=== PATIENT | female | born 1990 | race Caucasian/White ===

== ENCOUNTER 2018-01-11 19:32 | Emergency (ER) | payer BC, OTHER ==
[~2018-01-11] VITALS: Ht 160 cm; Wt 102.5 kg
[~2018-01-11 19:32] MED LIST: BCPILLS PO; MULT-240 PO; PRT/20 PO
[2018-01-11 19:56] VITALS: TEMP 37.1; Ht 160 cm; Wt 102.5 kg
--- NOTE | 2018-01-11 20:22 | EMERGENCY ROOM VISIT NOTE ---
History Report prepared by Donna: Marilee Mixon Under the Supervision of: Dr. Bennie Kennedy M.D. First contact with patient: 20:03 Chief Complaint: ABDOMINAL PAIN Stated Complaint: ABD PAIN History of Present Illness The patient is a 27 year old female who presents to the Emergency Room with complaints of constant abdominal pain beginning last night around 10 pm, about 22 hours ago. The patient reports her pain started as generalized abdominal pain. Since her pain started, it has moved to her right lower quadrant. She denies any radiation or further movement of her pain. She was seen at [facility] this afternoon and referred to the ED for an appendicitis rule out. At its worst, the patient rates her pain as a 6/10. She notes her pain is worse when she is up and moving. She denies any nausea, diarrhea, vomiting, or vaginal bleeding. The patient has a history of acid reflux. Source of History: patient Onset: 10 pm last night Position: abdomen Symptom Intensity: 6/10 Quality: other (pain) Timing: constant Associated Symptoms: + abdominal pain, No nausea, No vomiting, No diarrhea, No urinary symptoms Review of Systems See HPI for pertinent positives & negatives. A total of 10 systems reviewed and were otherwise negative. Past Medical & Surgical Medical Problems: (1) Acid reflux Family History Patient reports no known family medical history. Social History Smoking Status: Never Smoker Marital Status: single, in relationship Occupation Status: student Current/Historical Medications Scheduled Control Pills ( Control Pills), 1 TAB PO DAILY Gabapentin (Neurontin), 100 MG PO HS Multiple Vitamins W/ Minerals (Womens One Daily), 1 TAB PO DAILY Pantoprazole (Protonix), 40 MG PO QAM Allergies Coded Allergies: Azithromycin (Verified Allergy, Intermediate, HIVES, 01/11/18) Sulfa Drugs (Verified Allergy, Intermediate, HIVES, 01/11/18) Sulfamethoxazole w/Trimethoprim (Verified Allergy, Intermediate, HIVES, ) Physical Exam Vital Signs Date Time Temp Pulse Resp B/P (MAP) Pulse Ox O2 Delivery O2 Flow Rate FiO2 01/12/18 00:02 85 18 126/89 97 01/11/18 21:19 87 18 137/90 98 Room Air 01/11/18 19:56 37.1 91 19 154/107 98 Room Air Physical Exam GENERAL: Patient is in no acute distress. HEENT: No acute trauma, normocephalic atraumatic, mucous membranes moist, no nasal congestion, no scleral icterus. NECK: No stridor, no adenopathy, no meningismus, trachea is midline. LUNGS: Clear to auscultation bilaterally, no wheeze, no rhonchi, breath sounds equal. HEART: Without murmurs gallops or rubs, regular rate and rhythm. ABDOMEN: Moderately tender in RLQ. Soft, bowel sounds positive, no hernias, no peritonitis. EXTREMITIES: No cyanosis or edema, full range of motion of all the joints without pain or difficulty, no signs for acute trauma. NEUROLOGIC: Oriented x 3, no acute motor or sensory deficits, no focal weakness. SKIN: No rash, no jaundice, no diaphoresis. Medical Decision & Procedures ER Provider Diagnostic Interpretation: Radiology results as stated below per my review and radiologist interpretation: ULTRASOUND OF THE APPENDIX FINDINGS: Real-time, grayscale, and color flow sonography of the right lower quadrant was performed to assess for acute appendicitis. The appendix was not discretely visualized. No inflammatory changes or free fluid are seen in the right lower quadrant. No lymphadenopathy was seen. IMPRESSION: Nonvisualization of the appendix. Note that this does not exclude acute appendicitis. Electronically signed by: Bennie Linares M.D. CT SCAN OF THE ABDOMEN AND PELVIS WITH IV CONTRAST FINDINGS: Lung bases: The heart is normal in size and without pericardial effusion. The lung bases are clear. Liver: The contrast-enhanced liver is normal in size, contour, and attenuation. There is no intrahepatic biliary ductal dilatation. The hepatic veins and portal veins are patent. Gallbladder: Unremarkable. Spleen: Normal in size and attenuation. Pancreas: Unremarkable. Adrenal glands: Unremarkable. Kidneys: The contrast enhanced kidneys are normal in size and without hydronephrosis. The kidneys enhance symmetrically. Abdominal vasculature: The abdominal aorta is normal in course and caliber. Bowel: The small bowel and colon are normal in course and caliber. There is mild prominence of the base of the appendix which measures up to 7.5 mm. The remainder of the appendix is normal in caliber and no periappendiceal inflammation is seen. Peritoneum: There is no intraperitoneal free air or abdominal ascites. Lymphadenopathy: None. Pelvic viscera: The bladder, uterus, and adnexa are normal as visualized. Small ovarian follicles are incidentally noted. Skeletal structures: No lytic or blastic lesions are seen. IMPRESSION: 1. The base of the appendix is mildly prominent measuring 7.5 mm. The remainder of the appendix is normal in caliber and there is no periappendiceal inflammation. Acute appendicitis is considered unlikely. If symptoms progress consider short-term follow-up examination of the pelvis only. 2. No additional abnormality is seen in the abdomen or pelvis. Electronically signed by: Bennie Linares M.D. Laboratory Results 01/11/18 20:19 Red Blood Count 4.85, Mean Corpuscular Volume 82.7, Mean Corpuscular Hemoglobin 28.9, Mean Corpuscular Hemoglobin Concent 34.9, Mean Platelet Volume 8.7, Neutrophils (%) (Auto) 67.7, Lymphocytes (%) (Auto) 26.2, Monocytes (%) (Auto) 5.1, Eosinophils (%) (Auto) 0.5, Basophils (%) (Auto) 0.2, Neutrophils # (Auto) 7.26, Lymphocytes # (Auto) 2.81, Monocytes # (Auto) 0.55, Eosinophils # (Auto) 0.05, Basophils # (Auto) 0.02 01/11/18 20:19 Test 01/11/18 20:00 01/11/18 20:19 Urine Color YELLOW Urine Appearance CLEAR (CLEAR) Urine pH 6.5 (4.5-7.5) Urine Specific [place] 1.008 (1.000-1.030) Urine Protein NEG (NEG) Urine Glucose (UA) NEG (NEG) Urine Ketones NEG (NEG) Urine Occult Blood NEG (NEG) Urine Nitrite NEG (NEG) Urine Bilirubin NEG (NEG) Urine Urobilinogen NEG (NEG) Urine Leukocyte Esterase NEG (NEG) White Blood Count 10.72 K/uL (4.8-10.8) Red Blood Count 4.85 M/uL (4.2-5.4) Hemoglobin 14.0 g/dL (12.0-16.0) Hematocrit 40.1 % (37-47) Mean Corpuscular Volume 82.7 fL (80-100) Mean Corpuscular Hemoglobin 28.9 pg (25-34) Mean Corpuscular Hemoglobin Concent 34.9 g/dl (32-36) Platelet Count 320 K/uL (130-400) Mean Platelet Volume 8.7 fL (7.4-10.4) Neutrophils (%) (Auto) 67.7 % Lymphocytes (%) (Auto) 26.2 % Monocytes (%) (Auto) 5.1 % Eosinophils (%) (Auto) 0.5 % Basophils (%) (Auto) 0.2 % Neutrophils # (Auto) 7.26 K/uL (1.4-6.5) Lymphocytes # (Auto) 2.81 K/uL (1.2-3.4) Monocytes # (Auto) 0.55 K/uL (0.11-0.59) Eosinophils # (Auto) 0.05 K/uL (0-0.5) Basophils # (Auto) 0.02 K/uL (0-0.2) RDW Standard Deviation 40.0 fL (36.4-46.3) RDW Coefficient of Variation 13.2 % (11.5-14.5) Immature Granulocyte % (Auto) 0.3 % Immature Granulocyte # (Auto) 0.03 K/uL (0.00-0.02) Anion Gap 7.0 mmol/L (3-11) Est Creatinine Clear Calc Drug Dose 128.8 ml/min Estimated GFR () 126.6 Estimated GFR (Non- 109.2 BUN/Creatinine Ratio 8.1 (10-20) Calcium Level 9.0 mg/dl (8.5-10.1) Total Bilirubin 0.6 mg/dl (0.2-1) Aspartate Amino Transf (AST/SGOT) 15 U/L (15-37) Alanine Aminotransferase (ALT/SGPT) 17 U/L (12-78) Alkaline Phosphatase 110 U/L (45-117) Total Protein 7.8 gm/dl (6.4-8.2) Albumin 3.9 gm/dl (3.4-5.0) Globulin 3.9 gm/dl (2.5-4.0) Albumin/Globulin Ratio 1.0 (0.9-2) Lipase 82 U/L (73-393) Human Chorionic Gonadotropin, Qual NEG (NEG) Laboratory results reviewed by me. ED Course 2003: The patient was evaluated in room C8. A complete history and physical exam was performed. 2145: I updated the patient and her family on the ultrasound results. She is still agreeable to CT. 2325: Discussed the patient's case with Dr. Demarco. He feels the patient is fine for discharge with outpatient follow up. 2338: Long bedside discussion with the patient and her family on her test results. She is agreeable to discharge. 2351: Reevaluated the patient. Discussed results and discharge instructions: She verbalized understanding and agreement. The patient is ready for discharge. Medical Decision Differential Diagnoses include:appendicitis, diverticulitis, musculoskeletal pain, ovarian cyst, UTI, pancreatitis, biliary colic, viral illness. There is no leukocytosis or worrisome anemia. No significant electrolyte abnormality, kidney failure, hepatitis or pancreatitis. testing is negative. Urinalysis does not show infection. Abdominal ultrasound could not visualize the appendix. Abdominal and pelvis CT shows a very slightly enlarged appendix but no signs of acute appendicitis. No bowel obstruction, no large cyst seen on the right ovary. On exam, the patient was not febrile or toxic. She was tender in the right lower quadrant but she did not have peritonitis. I discussed the case with Dr. Naranjo of general surgery. The patient will be observed at home for the next 24 hours. If she has escalating pain, fever or nausea, she will return. If she is not improving she will return. If things are improving in the next 24 hours, she will follow with her doctors office. I had a long discussion with the patient and her family about the possibilities of early appendicitis. She has agreed to return as instructed. At this point, the cause for the pain is unclear. Medication Reconcilliation Current Medication List: was personally reviewed by me Blood Pressure Screening Patient's blood pressure: Elevated blood pressure Blood pressure disposition: Elevated BP felt to be situational Consults Time Called: 2321 Consulting Physician: Dr. Demarco Returned Call: [phone] Discussed the patient's case with Dr. Demarco. He feels the patient is fine for discharge with outpatient follow up. Impression Primary Impression: Right lower quadrant abdominal pain Scribe Attestation The scribe's documentation has been prepared under my direction and personally reviewed by me in its entirety. I confirm that the note above accurately reflects all work, treatment, procedures, and medical decision making performed by me. Departure Information Dispostion Home / Self-Care Referrals Nilo Rodarte M.D. (MEDICAL) (PCP) Forms HOME CARE DOCUMENTATION FORM, IMPORTANT VISIT INFORMATION Patient Instructions My [facility] Additional Instructions motrin or tylenol for pain heat to the area may help rest return for fever, vomiting, increasing pain or if not improving in the next 24 hours as early appendicitis is still possible as we discussed lab testing was all ok today
[2018-01-11 20:35] LABS: BASO % 0.2 %; BASO ABS # 0.02 K/uL (0-0.2); EOS % 0.5 %; EOS ABS # 0.05 K/uL (0-0.5); HEMATOCRIT 40.1 % (37-47); IG# 0.03 K/uL (0.00-0.02); LYMPH % 26.2 %; LYMPH ABS # 2.81 K/uL (1.2-3.4); MEAN CELL VOLUME 82.7 fL (80-100); MEAN CORPUSCULAR HEMOGLOBIN 28.9 pg (25-34); MEAN CORPUSCULAR HGB CONC 34.9 g/dl (32-36); MEAN PLATELET VOLUME 8.7 fL (7.4-10.4); MONO % 5.1 %; MONO ABS # 0.55 K/uL (0.11-0.59); NEUT % 67.7 %; NEUT ABS # 7.26 K/uL (1.4-6.5); PLATELET COUNT 320 K/uL (130-400); RED CELL DISTRIBUTION WIDTH CV 13.2 % (11.5-14.5); WHITE BLOOD COUNT 10.72 K/uL (4.8-10.8)
[2018-01-11] MEDS ORDERED: PANT1TAB3 PO (20:42)
[2018-01-11] MEDS ORDERED: GABA-112 PO (20:42)
[2018-01-11 20:55] LABS: ALBUMIN 3.9 gm/dl (3.4-5.0); CREATININE 0.75 mg/dl (0.60-1.20); POTASSIUM 3.4 mmol/L (3.5-5.1); TOTAL PROTEIN 7.8 gm/dl (6.4-8.2)
[2018-01-11] MEDS ORDERED: OPTIRAY 320 IV PRN (21:00)
--- NOTE | 2018-01-11 21:10 | DIAGNOSTIC IMAGING REPORT ---
ULTRASOUND OF THE APPENDIX CLINICAL HISTORY: Right lower quadrant abdominal pain. COMPARISON STUDY: No priors. FINDINGS: Real-time, grayscale, and color flow sonography of the right lower quadrant was performed to assess for acute appendicitis. The appendix was not discretely visualized. No inflammatory changes or free fluid are seen in the right lower quadrant. No lymphadenopathy was seen. IMPRESSION: Nonvisualization of the appendix. Note that this does not exclude acute appendicitis. Electronically signed by: Bennie Linares M.D. 01/11/2018 9:09 PM Dictated Date/Time: 01/11/2018 9:09 PM
--- NOTE | 2018-01-11 23:06 | DIAGNOSTIC IMAGING REPORT ---
CT SCAN OF THE ABDOMEN AND PELVIS WITH IV CONTRAST CLINICAL HISTORY: Generalized abdominal pain. COMPARISON STUDY: Right lower quadrant ultrasound dated 01/11/2018. TECHNIQUE: Following the IV administration of 92 cc of Optiray 320, CT scan of the abdomen and pelvis is performed from the lung bases to the proximal femora. Images are reviewed in the axial, sagittal, and coronal planes. IV contrast was administered without complication. A dose lowering technique was utilized adhering to the principles of ALARA. CT DOSE: 998.71 mGy.cm FINDINGS: Lung bases: The heart is normal in size and without pericardial effusion. The lung bases are clear. Liver: The contrast-enhanced liver is normal in size, contour, and attenuation. There is no intrahepatic biliary ductal dilatation. The hepatic veins and portal veins are patent. Gallbladder: Unremarkable. Spleen: Normal in size and attenuation. Pancreas: Unremarkable. Adrenal glands: Unremarkable. Kidneys: The contrast enhanced kidneys are normal in size and without hydronephrosis. The kidneys enhance symmetrically. Abdominal vasculature: The abdominal aorta is normal in course and caliber. Bowel: The small bowel and colon are normal in course and caliber. There is mild prominence of the base of the appendix which measures up to 7.5 mm. The remainder of the appendix is normal in caliber and no periappendiceal inflammation is seen. Peritoneum: There is no intraperitoneal free air or abdominal ascites. Lymphadenopathy: None. Pelvic viscera: The bladder, uterus, and adnexa are normal as visualized. Small ovarian follicles are incidentally noted. Skeletal structures: No lytic or blastic lesions are seen. IMPRESSION: 1. The base of the appendix is mildly prominent measuring 7.5 mm. The remainder of the appendix is normal in caliber and there is no periappendiceal inflammation. Acute appendicitis is considered unlikely. If symptoms progress consider short-term follow-up examination of the pelvis only. 2. No additional abnormality is seen in the abdomen or pelvis. Electronically signed by: Bennie Linares M.D. 01/11/2018 11:05 PM Dictated Date/Time: 01/11/2018 10:57 PM
[2018-01-12 00:02] VITALS: BP 126/89; PULSE 85; O2SAT 97
[2018-01-13] MEDS ORDERED: TRAM-10 PO (10:18)
[2018-01-13] MEDS ORDERED: DOCU-94 PO (10:18)
== END 2018-01-12 00:03 | disposition home or self-care (01) ==
LOC: C.EDB 19:33 → C.EDC 01-12 00:03
DX: R10.31 Right lower quadrant pain (principal); K21.9 Gastro-esophageal reflux disease without esophagitis; Z79.3 Long term (current) use of hormonal contraceptives; Z79.899 Other long term (current) drug therapy; Z88.1 Allergy status to other antibiotic agents; Z88.2 Allergy status to sulfonamides